=== PATIENT | female | born 1995 | race American Indian/Alaskan Native ===

== ENCOUNTER 2020-10-12 11:17 | Emergency (ER) | payer SELFPAY | END 2020-10-12 11:20 | disposition left against medical advice (07) | LOC: ED 11:17 | DX: N93.9 Abnormal uterine and vaginal bleeding, unspecified (principal); Z53.21 Procedure and treatment not carried out due to patient leaving prior to being seen by health care provider ==

== ENCOUNTER 2021-02-19 21:40 | Emergency (ER) | payer MEDICAID ==
[2021-02-19 21:47] VITALS: BP 125/74
--- NOTE | 2021-02-19 22:36 | Emergency Department Report ---
ED N/V/D HPI - General Chief complaint: Nausea/Vomiting/Diarrhea Stated complaint: ruth/vomiting/diarrhea PUI?: Yes Time Seen by Provider: 02/19/21 21:49 Source: patient Mode of arrival: Ambulatory Limitations: No Limitations - History of Present Illness Initial comments: cc: diarrhea lost of taste nausea HPI: This is a 25 yo female who presents with nausea vomiting diarrhea. young son with similar symptoms MD complaint: nausea, vomiting, diarrhea Description of Vomiting: food contents Description of Diarrhea: water Associated Abdominal Pain: No Radiation: none Severity: mild Consistency: constant Improves with: none Worsens with: none Context: sick contacts - Related Data Previous Rx's Medication Instructions Recorded Last Taken Type Ciprofloxacin HCl 500 mg PO BID 3 Days #6 tablet 02/19/21 Unknown Rx Loperamide [Imodium] 2 tab PO QID 2 Days #16 capsule 02/19/21 Unknown Rx ED Review of Systems ROS: Stated complaint: ruth/vomiting/diarrhea Other details as noted in HPI Comment: All other systems reviewed and negative Constitutional: denies: chills, fever, malaise Gastrointestinal: nausea, vomiting, diarrhea. denies: abdominal pain ED Past Medical Hx - Past Medical History Previous Medical History?: Yes Additional medical history: hx of fatty liver - Surgical History Past Surgical History?: No - Social History Smoking Status: Never Smoker - Medications Home Medications: Home Medications Medication Instructions Recorded Confirmed Last Taken Type Ciprofloxacin HCl 500 mg PO BID 3 Days #6 tablet 02/19/21 Unknown Rx Loperamide [Imodium] 2 tab PO QID 2 Days #16 capsule 02/19/21 Unknown Rx ED Physical Exam - General Limitations: No Limitations General appearance: alert, in no apparent distress - Head Head exam: Present: atraumatic, normocephalic - Eye Eye exam: Present: normal appearance - ENT ENT exam: Present: mucous membranes moist - Neck Neck exam: Present: normal inspection, full ROM - Respiratory Respiratory exam: Present: normal lung sounds bilaterally. Absent: respiratory distress - Cardiovascular Cardiovascular Exam: Present: regular rate, normal rhythm. Absent: systolic murmur, diastolic murmur, rubs, gallop - GI/Abdominal GI/Abdominal exam: Present: soft, normal bowel sounds - Extremities Exam Extremities exam: Present: normal inspection - Back Exam Back exam: Present: normal inspection - Neurological Exam Neurological exam: Present: alert, oriented X3 - Psychiatric Psychiatric exam: Present: normal affect, normal mood - Skin Skin exam: Present: warm, dry, intact, normal color. Absent: rash ED Course Vital Signs 02/19/21 21:41 Temperature 99 F Pulse Rate 87 Respiratory 18 Rate Blood Pressure 125/74 [Right] O2 Sat by Pulse 99 Oximetry ED Medical Decision Making - Medical Decision Making food poisoning vs COVID rx: cipro loperamide 4 days+ symptoms Critical care attestation.: If time is entered above; I have spent that time in minutes in the direct care of this critically ill patient, excluding procedure time. ED Disposition Clinical Impression: Food poisoning Disposition: HOME / SELF CARE / HOMELESS Is pt being admited?: No Does the pt Need Aspirin: No Condition: Stable Instructions: Food Poisoning Prescriptions: Ciprofloxacin HCl 500 mg PO BID 3 Days #6 tablet Loperamide [Imodium] 2 tab PO QID 2 Days #16 capsule Referrals: KIARA GARCIA MD [Staff Physician] - 3-5 Days Forms: Work/School Release Form(ED)
== END 2021-02-19 23:17 | disposition home or self-care (01) ==
LOC: ED 21:40
DX: A05.9 Bacterial foodborne intoxication, unspecified (principal)
CPT/HCPCS: 99282